=== PATIENT | male | born 1985 | race Caucasian/White ===

== ENCOUNTER 2016-10-20 12:02 | Emergency (ER) | payer OTHER ==
[2016-10-20 12:24] VITALS: RESP 20; TEMP 98.6
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
[2016-10-20 13:41] LABS: COLOR YELLOW; LEUKOCYTE ESTERASE,URINE NEGATIVE (NEGATIVE); NITRITE,URINE NEGATIVE (NEGATIVE)
[2016-10-20 14:14] VITALS: BP 156/72; PULSE 88; O2SAT 95
== END 2016-10-20 14:18 | disposition home or self-care (01) ==
LOC: CED 12:02
DX: M54.5 Low back pain (principal)
CPT/HCPCS: 81003-PO; 99203-PO; G0463-PO